=== PATIENT | male | born 1980 | race Caucasian/White ===

== ENCOUNTER → 2022-10-21 | Outpatient (CLI) | payer OTHER | END | disposition home or self-care (01) | LOC: MRI 12:12 | DX: S43.431A Superior glenoid labrum lesion of right shoulder, initial encounter (principal); S56.512A Strain of other extensor muscle, fascia and tendon at forearm level, left arm, initial encounter; M79.601 Pain in right arm; M25.521 Pain in right elbow; X58.XXXA Exposure to other specified factors, initial encounter; Y93.89 Activity, other specified; Y92.89 Other specified places as the place of occurrence of the external cause; Y99.8 Other external cause status | CPT/HCPCS: 73220; 73221 ==